=== PATIENT | female | born 1985 | race Caucasian/White ===

== ENCOUNTER 2024-07-30 17:19 | Emergency (ER) | payer MEDICAID ==
[~2024-07-30] VITALS: Ht 180.3 cm; Wt 60.0 kg
[2024-07-30 17:38] VITALS: TEMP 36.8; O2SAT 97
[2024-07-30 17:54] LABS: BASOPHILS % 0.7 % (0.0-2.0); DIFFERENTIAL COMMENT 0; EOSINOPHILS % 0.1 % (0.0-5.0); HEMATOCRIT. 38.5 % (36.0-48.0); HEMOGLOBIN. 12.9 g/dL (12.0-16.0); LYMPHOCYTES % 25.5 % (20.0-50.0); MEAN CORPUSCULAR HEMOGLOBIN 30.3 pg (28.0-32.0); MEAN CORPUSCULAR HGB CONC 33.6 g/dL (31.0-37.0); MEAN CORPUSCULAR VOLUME 90.3 fL (81.0-99.0); MEAN PLATELET VOLUME 9.7 fl (7.4-10.4); MONOCYTES % 3.6 % (2.0-8.0); NEUTROPHILS % 70.1 % (40.0-76.0); PLATELET 166 x1000/uL (130-400); RED BLOOD CELL COUNT 4.26 mill/uL (4.2-5.4); RED CELL DISTRIBUTION WIDTH 13.2 % (11.6-14.6); WHITE BLOOD COUNT 8.2 x1000/uL (4.5-11.0)
[2024-07-30 18:02] LABS: CARBON DIOXIDE 24 mEq/L (21-32); CHLORIDE 108 mEq/L (98-107); POTASSIUM 3.7 mEq/L (3.5-5.1); SODIUM 140 mEq/L (136-145)
[2024-07-30 18:03] LABS: CALCIUM 9.3 mg/dL (8.7-10.4)
[2024-07-30 18:07] LABS: CREATININE 0.7 mg/dL (0.6-1.0)
[2024-07-30 18:08] LABS: GLUCOSE 109 mg/dL (70-105); UREA NITROGEN BLOOD 8 mg/dL (9-23)
[2024-07-30] MEDS: KETOROLAC 30MG/ML VIAL IM STA (18:51)
[2024-07-30 22:30] VITALS: BP 119/70; PULSE 59; RESP 15; O2SAT 100
== END 2024-07-30 22:30 | disposition home or self-care (01) ==
LOC: ER 17:19
DX: R51.9 Headache, unspecified (principal); F41.9 Anxiety disorder, unspecified; Z98.890 Other specified postprocedural states; Z90.89 Acquired absence of other organs
CPT/HCPCS: 80048; 85025; 36415; 70450; 96372; 99285; J1885; Z7610